=== PATIENT | female | born 1975 | race Caucasian/White ===

== ENCOUNTER 2020-12-07 14:29 | Day surgery (SDC) | payer OTHER ==
[~2020-12-07] VITALS: Ht 167.6 cm; Wt 141.9 kg
[2020-12-07] MEDS ORDERED: PANT40TA29 PO (14:40)
[2020-12-07] MEDS ORDERED: LEVO25TA5 PO (14:40)
[2020-12-07] MEDS ORDERED: GABA-845 PO (14:40)
[2020-12-07] MEDS ORDERED: TIZA4CAP PO (14:40)
[2020-12-07] MEDS ORDERED: CITA40TA4 PO (14:40)
[2020-12-07] MEDS ORDERED: SYED1TAB2 PO (14:40)
[2020-12-07] MEDS ORDERED: NUCY150T PO (14:40)
[2020-12-07] MEDS ORDERED: TRAM50TA2 PO (14:40)
[2020-12-07] MEDS ORDERED: PROMETHAZINE INJ 25 MG/ML VIAL (J2550) IV ONE (15:05)
[2020-12-07] MEDS ORDERED: MORPHINE 4 MG/ML 1ML VIAL/SYRINGE (J2270) IV ONE ×2 (15:05→18:25)
[2020-12-07] MEDS ORDERED: NS 1,000 ML IV ONE (15:05)
[2020-12-07 15:38] LABS: BASO # 0.1 10^3/uL (0.0-0.2); BASO % 0.5 % (0.0-1.0); EOS # 0.1 10^3/uL (0.0-0.5); EOS % 0.6 % (0.0-3.0); HEMATOCRIT 37.2 % (36.0-47.0); HEMOGLOBIN 11.9 g/dl (12.0-15.5); MEAN CORPUSCULAR HEMOGLOBIN 25.9 pg (27.0-33.0); MEAN CORPUSCULAR VOLUME 80.9 fl (80.0-96.0); MONO # 0.8 10^3/uL (0.0-0.8); MONO % 5.7 % (2.0-8.0); NEUTROPHILS # 10.3 10^3/uL (1.5-8.5); NEUTROPHILS % 71.7 % (36.0-66.0); PLATELET COUNT, AUTOMATED 441 10^3/uL (150-450); WHITE BLOOD COUNT 14.3 10^3/uL (4.0-10.0)
[2020-12-07 16:36] LABS: ALBUMIN 2.9 GM/DL (3.2-5.2); ALT/SGPT 16 U/L (12-78); BILIRUBIN,DIRECT < 0.1 MG/DL (0.0-0.2); BILIRUBIN,TOTAL 0.2 MG/DL (0.2-1.0); BLOOD UREA NITROGEN 8 MG/DL (7-18); CALCIUM LEVEL 8.5 MG/DL (8.5-10.1); CARBON DIOXIDE LEVEL 25 MEQ/L (21-32); CHLORIDE LEVEL 107 MEQ/L (98-107); CREATININE FOR GFR 0.61 MG/DL (0.55-1.30); GLOMERULAR FILTRATION RATE > 60.0 (>58); GLUCOSE, FASTING 103 MG/DL (70-100); LIPASE 69 U/L (73-393); POTASSIUM SERUM 4.3 MEQ/L (3.5-5.1); SODIUM LEVEL 139 MEQ/L (136-145); TOTAL PROTEIN 6.7 GM/DL (6.4-8.2)
[2020-12-07] MEDS ORDERED: ISOVUE-370 76% 100ML VIAL As Ordered ONE (16:39)
--- NOTE | 2020-12-07 17:04 | REP ---
INDICATION: rlq pain, nausea, loss of appetite. COMPARISON: None. TECHNIQUE: Helical scanning was acquired and 4 mm axial images are re-formatted. Coronal and sagittal MPR images were generated and reviewed. The contrast enhancement dose is 100 mL of intravenous Isovue 370. 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 The lung bases are clear on axial CT images. There is no evidence of pleural effusion or upper abdominal ascites. The liver and the spleen are normal in size homogeneous in texture. Normal adrenal glands are seen bilaterally. No abnormality is noted in the pancreas. The gallbladder surgically absent. The patient is status post gastric sleeve procedure. The kidneys enhance symmetrically and are morphologically intact. No retroperitoneal mass or adenopathy is seen. Small and large bowel loops are normal in the upper abdomen. Pelvic CT images demonstrate fluid-filled mildly dilated appendix in the right lower quadrant with Reta appendiceal streaking consistent with early appendicitis. No abscess or free air is seen. The appendix is posterior to the cecal tip and distal ileum in the right iliac fossa. There is left colonic diverticulosis without CT evidence of diverticulitis. Fibroid changes noted in the uterus. No ovarian abnormality is seen. Urinary bladder is intact. No abdominal wall defect or bony destructive lesion is seen. IMPRESSION: Findings consistent with early acute appendicitis with fluid distention of the distal appendix and periappendiceal streaking. No abscess or free air is seen. Fibroid uterus and left colonic diverticulosis. Status post cholecystectomy and gastric sleeve procedure. <Electronically signed by Gerald Quiros > 12/07/20 [id number]
[2020-12-07] MEDS ORDERED: GABA800T4 PO (17:34)
[2020-12-07] MEDS ORDERED: LR 1,000 ML IV SCH (20:51)
[2020-12-07] MEDS ORDERED: ONDANSETRON 4MG/2ML VIAL IV PRN (20:55)
[2020-12-07] MEDS ORDERED: CitaloPRAM (CeleXA) 20 MG TAB PO SCH (21:00)
[2020-12-07] MEDS: MORPHINE 2 MG/ML 1ML VIAL (J2270) IV PRN (21:26)
[2020-12-07] MEDS ORDERED: cefTRIAXone SOD 2 GM in D5W MINI-BAG PLUS 50 ML IV ONE (21:30)
[2020-12-07] MEDS ORDERED: LIDOCAINE 2% 100MG/5ML SDV (FOR ANES.) As Ordered ONE (21:45)
[2020-12-07] MEDS ORDERED: propofoL 200 MG/20 ML VIAL As Ordered ONE (21:45)
[2020-12-07] MEDS ORDERED: MIDAZOLAM INJ 2MG/2ML VIAL (J2250 PER 1MG) As Ordered ONE (21:45)
[2020-12-07] MEDS ORDERED: ROCURONIUM BROMIDE 50 MG/5 ML VIAL As Ordered ONE ×2 (21:45→23:49)
[2020-12-07] MEDS ORDERED: ONDANSETRON 4MG/2ML VIAL As Ordered ONE (21:46)
[2020-12-07] MEDS ORDERED: fentaNYL 100 MCG/2 ML INJECTION (J3010) As Ordered ONE ×2 (21:46→23:40)
[2020-12-07] MEDS ORDERED: dexameTHASONE 4 MG/ML 1ML VIAL (J1100 PER 1MG) As Ordered ONE (21:46)
[2020-12-07] MEDS ORDERED: metroNIDAZOLE 500 MG in IV 1 EA IV ONE (22:00)
[2020-12-07] MEDS ORDERED: SUGAMMADEX SODIUM 500 MG/5 ML VIAL (BRIDION) As Ordered ONE (22:28)
[2020-12-07] MEDS ORDERED: KETOROLAC 60MG 2ML VIAL As Ordered ONE (22:28)
[2020-12-07] MEDS ORDERED: BUPIVACAINE HCL 0.25% 30ML VIAL As Ordered ONE (23:26)
[2020-12-07] MEDS ORDERED: ACETAMINOPHEN 1000MG 100ML IV BTL (OFIRMEV) (J0131 PER 10MG) As Ordered ONE (23:31)
[2020-12-07] MEDS ORDERED: METOCLOPRAMIDE INJ 10MG/2ML VIAL (J2765 PER 1) As Ordered ONE (23:40)
[2020-12-08] MEDS ORDERED: SUGAMMADEX SODIUM 500 MG/5 ML VIAL (BRIDION) As Ordered ONE (00:25)
[2020-12-08] MEDS ORDERED: traMADol 50 MG TAB PO PRN (00:45)
[2020-12-08] MEDS ORDERED: tiZANidine 4 MG TAB PO PRN (00:45)
[2020-12-08] MEDS ORDERED: ACETAMINOPHEN TAB 650MG DOSE (2X325MG) PO PRN (00:45)
[2020-12-08] MEDS ORDERED: ONDANSETRON 4MG/2ML VIAL IV PRN (00:55)
[2020-12-08] MEDS ORDERED: oxyCODONE 5MG TAB PO PRN (00:55)
[2020-12-08] MEDS ORDERED: HYDROMORPHONE HCL 0.5 MG/ 0.5 ML SYRINGE (J1170 PER 1) IV PRN (00:55)
[2020-12-08] MEDS ORDERED: LR 1,000 ML IV SCH (00:55)
[2020-12-08] MEDS ORDERED: fentaNYL 100 MCG/2 ML INJECTION (J3010) IV PRN (00:55)
[2020-12-08 01:30] VITALS: BP 131/81
[2020-12-08] MEDS: GABAPENTIN 400MG CAP PO SCH ×2 (01:32→08:01)
[2020-12-08 02:00] VITALS: BP 131/81
[2020-12-08 03:00] VITALS: BP 135/82
[2020-12-08 04:00] VITALS: BP 132/80
[2020-12-08 06:06] VITALS: BP 138/82
--- NOTE | 2020-12-08 06:54 | RO ---
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 POSTOPERATIVE DIAGNOSIS: Acute appendicitis. PROCEDURE: Laparoscopic appendectomy. SURGEON: Gurinder Avila MD EXERCISE EQUIPMENT SPECIALIST: ANESTHESIA: General. INDICATIONS FOR THE PROCEDURE: The patient is a 45-year-old woman who had developed some abdominal pain in the lower abdomen which became more localized in the right lower quadrant. She had tenderness in the right lower quadrant and a CT scan showed evidence for inflammation of the appendix. She is now for a laparoscopic appendectomy. DESCRIPTION OF PROCEDURE: The patient was brought to the operating room and placed on the table in a supine position. She was placed under general endotracheal anesthesia. The patient's abdomen was prepped and draped in a sterile fashion. A 0.25% Marcaine was infiltrated at each of the trocar sites as needed. A short supraumbilical midline incision was made and this was deepened to the fascia. A Veress needle was inserted and after a positive hanging-drop test, the abdomen was inflated with carbon dioxide gas. When the abdomen was inflated fully, an incision was made in the fascia and a 12-mm port was placed without difficulty. The laparoscope was inserted. The patient was tilted slightly to a Trendelenburg position and rolled slightly to the left. Inspection showed a normal-appearing liver. Visualized loops of the small and large bowel appeared normal. There did appear to be some inflammation at the inferior aspect of the cecum in the right lower quadrant. Two 5-mm ports were placed in the left lower quadrant and graspers were inserted. The appendix was identified lying against the lateral abdominal wall at the inferior aspect of the cecum with marked inflammation of the distal 2-3 cm of the tip of the appendix. This was adherent to the lateral abdominal wall. The appendix was freed by blunt dissection and then grasped and elevated. The mesoappendix was divided using the cautery with care to ensure that the vessels were thoroughly cauterized. The mesoappendix was divided all the way down to the base of the appendix. The appendix was stapled at its junction with the cecum using a 45-mm endoscopic linear cutter stapler with a blue load. The appendix was placed in an Endopouch. The right lower quadrant was irrigated and inspected, and there was no evidence of any bleeding. The staple line was intact. The patient was returned to a flat position. The abdomen was deflated and the trocars were all removed. The appendix was recovered through the supraumbilical site and sent for permanent pathology. The fascia at the supraumbilical site was closed with interrupted simple sutures of 2-0 Vicryl. The subcutaneous tissues were closed with a 2-0 Vicryl and the skin incisions were then all closed with buried 4-0 Vicryl and Steri-Strips. Light dressings were applied. The patient tolerated the procedure well without apparent complication. She was awakened in the operating room, extubated, and moved to the recovery room in stable condition.
[2020-12-08] MEDS: MORPHINE 2 MG/ML 1ML VIAL (J2270) IV PRN (08:11)
[2020-12-08] MEDS ORDERED: PANTOPRAZOLE 40MG TAB (PROTONIX) PO SCH (09:00)
[2020-12-08] MEDS ORDERED: LEVOTHYROXINE 25MCG TABLET (0.025MG) PO SCH (09:00)
[2020-12-08 10:00] VITALS: BP 141/83
--- NOTE | 2020-12-10 17:12 | IPN ---
PROGRESS NOTE DATE: 12/08/2020 HISTORY: Patient is a 45-year-old woman who presented to the emergency department on December 07 with right lower quadrant abdominal pain. A CT scan had shown inflammation of the tip of the appendix, and she underwent appendectomy just about midnight. The surgery was uncomplicated. She has been doing generally well postoperatively, and her diet has been advanced. Vital Signs: Show that she has been afebrile since surgery. Her pulse is generally in the 90s now. Her blood pressure is good. Intake and output show that she had 1900 of oral intake today with a good urine output. PHYSICAL EXAMINATION: Patient is awake and alert and seems quite comfortable. Examination of the abdomen reveals active bowel sounds. Her dressings are clean and dry. The abdomen is soft with some expected tenderness but nothing excessive for what she had done. IMPRESSION: Patient is doing very well now 1 day, actually 12 hours, postoperative from her laparoscopic appendectomy. PLAN: Patient was counseled that she appears ready for discharge, and she is agreeable. I advised her that she should avoid any strenuous physical activity for about 2 weeks. She can pursue light activities as tolerated. She can take a diet as tolerated. She should take any usual medications she was taking before she came in. We discussed pain medications, and she declined any need for new medications. She has some medicine for her chronic back pain in the form of tramadol if she needs something. She should followup in my office in a week to 10 days for a routine followup. She should call my office for any problems. She can shower 24 hours after the surgery but should leave her Steri-Strips on to come off on their own.
== END 2020-12-08 14:40 | disposition home or self-care (01) ==
LOC: M ED 14:29 → M SDC 20:54 → M MS5PR 12-08 01:18 → M SDC 12-08 14:40
PROVIDERS: ATTEND Surgery
DX: K35.890 Other acute appendicitis without perforation or gangrene (principal); J45.909 Unspecified asthma, uncomplicated; E07.9 Disorder of thyroid, unspecified; M54.9 Dorsalgia, unspecified; F99 Mental disorder, not otherwise specified; E66.9 Obesity, unspecified; M79.7 Fibromyalgia; K21.9 Gastro-esophageal reflux disease without esophagitis; Z98.84 Bariatric surgery status
CPT/HCPCS: 36415; 44970; 74177; 80048; 80076; 81001; 83605; 83690; 84702; 85025; 88304; 96361; 96365; 96367; 96375; 96376; 99284; J0131; J0696; J1100; J1885; J2250; J2270; J2405; J2765; J3010; Q9967; U0002

== ENCOUNTER → 2021-03-13 | Outpatient (REF) | payer OTHER ==
[~2021-03-13] MED LIST: CITA40TA4 PO; GABA-283 PO; GABA800T4 PO; LEVO25TA5 PO; NUCY150T PO; PANT40TA29 PO; SYED1TAB2 PO; TIZA4CAP PO; TRAM50TA2 PO
== END ==
LOC: M SFHCPLAZ 13:00
PROVIDERS: ATTEND Family Medicine
DX: Z51.81 Encounter for therapeutic drug level monitoring (principal)

== ENCOUNTER → 2021-03-18 | Outpatient (CLI) | payer OTHER ==
[2021-03-18 13:49] LABS: HEMATOCRIT 38.2 % (36.0-47.0); HEMOGLOBIN 11.3 g/dl (12.0-15.5); MEAN CORPUSCULAR HEMOGLOBIN 24.3 pg (27.0-33.0); MEAN CORPUSCULAR HGB CONC 29.6 g/dl (32.0-36.5); MEAN CORPUSCULAR VOLUME 82.2 fl (80.0-96.0); PLATELET COUNT, AUTOMATED 413 10^3/uL (150-450); RED BLOOD COUNT 4.65 10^6/uL (4.00-5.40); WHITE BLOOD COUNT 10.3 10^3/uL (4.0-10.0)
[2021-03-18 13:55] LABS: HEMATOCRIT 38.6 % (36.0-47.0)
[2021-03-18 14:28] LABS: ALBUMIN 3.1 GM/DL (3.2-5.2); ALT/SGPT 24 U/L (12-78); BILIRUBIN,TOTAL 0.2 MG/DL (0.2-1.0); BLOOD UREA NITROGEN 9 MG/DL (7-18); CALCIUM LEVEL 9.1 MG/DL (8.5-10.1); CARBON DIOXIDE LEVEL 27 MEQ/L (21-32); CHLORIDE LEVEL 104 MEQ/L (98-107); CHOLESTEROL LEVEL 201 MG/DL (<200); CREATININE FOR GFR 0.74 MG/DL (0.55-1.30); FERRITIN 9 NG/ML (8-252); GLOMERULAR FILTRATION RATE > 60.0 (>58); GLUCOSE, FASTING 91 MG/DL (70-100); HDL CHOLESTEROL 63 MG/DL (>40); LDL CHOLESTEROL 106 MG/DL (<100); MAGNESIUM LEVEL 2.2 MG/DL (1.8-2.4); NON-HDL-C 138 MG/DL; PHOSPHORUS LEVEL 3.7 MG/DL (2.5-4.9); POTASSIUM SERUM 4.1 MEQ/L (3.5-5.1); SODIUM LEVEL 141 MEQ/L (136-145); TOTAL PROTEIN 7.3 GM/DL (6.4-8.2); TRIGLYCERIDES LEVEL 160 MG/DL (<150)
[2021-03-18 14:30] LABS: TOTAL 25(OH) VITAMIN D 21.9 NG/ML (30.0-100.0); VITAMIN B12 LEVEL 740 PG/ML (247-911)
== END ==
LOC: M PLALAB 08:58
PROVIDERS: ATTEND Family Medicine
DX: E03.9 Hypothyroidism, unspecified (principal)

== ENCOUNTER → 2021-05-15 | Outpatient (CLI) | payer OTHER | LOC: M PLALAB 11:29 | PROVIDERS: ATTEND Family Medicine | DX: M25.50 Pain in unspecified joint (principal) ==

== ENCOUNTER → 2021-08-12 | Outpatient (CLI) | payer OTHER ==
[~2021-08-12] MED LIST changes: -CITA40TA4 PO; +CITA40TA7 PO
== END ==
LOC: M PLALAB 09:35
PROVIDERS: ATTEND Family Medicine
DX: E03.9 Hypothyroidism, unspecified (principal)

== ENCOUNTER → 2021-09-16 | Outpatient (CLI) | payer OTHER ==
[~2021-09-16] MED LIST changes: +CITA40TA4 PO; -CITA40TA7 PO
== END ==
LOC: M PAIN 13:00
PROVIDERS: ATTEND Anesthesiology
DX: M47.816 Spondylosis without myelopathy or radiculopathy, lumbar region (principal); E03.9 Hypothyroidism, unspecified; F32.9 Major depressive disorder, single episode, unspecified; K21.9 Gastro-esophageal reflux disease without esophagitis; M51.36 Other intervertebral disc degeneration, lumbar region; M17.0 Bilateral primary osteoarthritis of knee; E28.2 Polycystic ovarian syndrome; J45.909 Unspecified asthma, uncomplicated; M79.7 Fibromyalgia; M54.2 Cervicalgia; Z79.891 Long term (current) use of opiate analgesic; Z79.899 Other long term (current) drug therapy

== ENCOUNTER → 2021-10-26 | Outpatient (CLI) | payer OTHER ==
[~2021-10-26] MED LIST changes: -CITA40TA4 PO; +CITA40TA7 PO
== END ==
LOC: M PLAIMG 11:01
PROVIDERS: ATTEND Anesthesiology
DX: R93.7 Abnormal findings on diagnostic imaging of other parts of musculoskeletal system (principal); M47.816 Spondylosis without myelopathy or radiculopathy, lumbar region

== ENCOUNTER → 2021-11-12 | Outpatient (REF) | payer OTHER | LOC: M SFHCPLAZ 16:47 | PROVIDERS: ATTEND Family Medicine | DX: Z51.81 Encounter for therapeutic drug level monitoring (principal) ==

== ENCOUNTER → 2022-02-15 | Outpatient (CLI) | payer OTHER | LOC: M PAIN 13:00 | PROVIDERS: ATTEND Anesthesiology | DX: M79.10 Myalgia, unspecified site (principal); M54.50 Low back pain, unspecified; M47.816 Spondylosis without myelopathy or radiculopathy, lumbar region; E03.9 Hypothyroidism, unspecified; F32.A Depression, unspecified; K21.9 Gastro-esophageal reflux disease without esophagitis; J45.909 Unspecified asthma, uncomplicated; M51.36 Other intervertebral disc degeneration, lumbar region; M17.0 Bilateral primary osteoarthritis of knee; M79.7 Fibromyalgia; M54.2 Cervicalgia; Z79.899 Other long term (current) drug therapy ==

== ENCOUNTER 2022-11-06 07:41 | Emergency (ER) | payer OTHER ==
[~2022-11-06] VITALS: Ht 167.6 cm; Wt 164.8 kg
[2022-11-06] MEDS ORDERED: BOOSTRIX/ADACEL VACCINE (DIPHTH/PERTUSS/ACELL/TETANUS) 0.5ML SYR IM.IMMUN ONE (08:10)
[2022-11-06] MEDS ORDERED: ACETAMINOPHEN 500 MG TAB PO ONE (08:40)
[2022-11-06 08:44] LABS: BASO # 0.1 10^3/uL (0.0-0.2); BASO % 0.4 % (0.0-1.0); EOS # 0.1 10^3/uL (0.0-0.5); EOS % 0.6 % (0.0-3.0); HEMATOCRIT 43.8 % (36.0-47.0); HEMOGLOBIN 14.1 g/dl (12.0-15.5); LYMPH # 2.3 10^3/uL (1.5-5.0); LYMPH % 12.6 % (24.0-44.0); MEAN CORPUSCULAR HEMOGLOBIN 28.3 pg (27.0-33.0); MEAN CORPUSCULAR HGB CONC 32.2 g/dl (32.0-36.5); MEAN CORPUSCULAR VOLUME 87.8 fl (80.0-96.0); MONO # 0.8 10^3/uL (0.0-0.8); MONO % 4.2 % (2.0-8.0); NEUTROPHILS % 81.7 % (36.0-66.0); PLATELET COUNT, AUTOMATED 417 10^3/uL (150-450); RED BLOOD COUNT 4.99 10^6/uL (4.00-5.40); WHITE BLOOD COUNT 18.4 10^3/uL (4.0-10.0)
[2022-11-06] MEDS ORDERED: LIDOCAINE 2% W/EPINEPHRINE 20ML VIAL **PRES FREE INJ ONE (08:45)
[2022-11-06 09:09] LABS: BLOOD UREA NITROGEN 12 MG/DL (9-23); CALCIUM LEVEL 8.5 MG/DL (8.5-10.1); CARBON DIOXIDE LEVEL 27 MMOL/L (20-31); CHLORIDE LEVEL 102 MMOL/L (98-107); CREATININE FOR GFR 0.78 MG/DL (0.55-1.30); GLOMERULAR FILTRATION RATE > 60.0 (>58); GLUCOSE, FASTING 163 MG/DL (60-100); MAGNESIUM LEVEL 1.8 MG/DL (1.8-2.4); POTASSIUM SERUM 4.8 MMOL/L (3.5-5.1); SODIUM LEVEL 135 MMOL/L (136-145)
[2022-11-06 09:11] LABS: THYROID STIMULATING HORMONE 4.503 uIU/ML (0.55-4.78)
[2022-11-06 09:34] LABS: LIPASE 27 U/L (12-53)
[2022-11-06 09:39] LABS: ALBUMIN 2.7 G/DL (3.2-5.2); ALKALINE PHOSPHATASE 89 U/L (46-116); ALT/SGPT 18 U/L (7.0-40); AST/SGOT 11 U/L (<34); BILIRUBIN,DIRECT < 0.1 MG/DL (<0.4); BILIRUBIN,TOTAL 0.3 MG/DL (0.3-1.2); TOTAL PROTEIN 6.3 G/DL (5.7-8.2)
[2022-11-06] MEDS ORDERED: BACI500O8 TOP ×2 (10:34→11:45)
[2022-11-06 10:53] VITALS: O2SAT 99
[2022-11-06 11:45] VITALS: BP 117/56
== END 2022-11-06 12:03 | disposition home or self-care (01) ==
LOC: M ED 07:41
DX: R55 Syncope and collapse (principal); S01.81XA Laceration without foreign body of other part of head, initial encounter; W07.XXXA Fall from chair, initial encounter; Y92.091 Bathroom in other non-institutional residence as the place of occurrence of the external cause; J45.909 Unspecified asthma, uncomplicated; F32.9 Major depressive disorder, single episode, unspecified; Z79.890 Hormone replacement therapy; Z79.899 Other long term (current) drug therapy

== ENCOUNTER 2023-11-02 09:20 | Day surgery (SDC) | payer OTHER ==
[~2023-11-02] VITALS: Ht 167.6 cm; Wt 123.6 kg
[~2023-11-02 09:20] MED LIST changes: +BACI500O8 TOP; -GABA-283 PO; +GABA-284 PO; +LEVO50TA5 PO; +PANT20TA6 PO; +PHEN37.58 PO; +PROA1AER2 INH; +TOPI-21 PO
[2023-11-02] MEDS: NS 1,000 ML IV ONE (09:42)
[2023-11-02] MEDS ORDERED: propofoL 200 MG/20 ML VIAL As Ordered ONE (10:59)
[2023-11-02] MEDS ORDERED: LIDOCAINE 2% 100MG/5ML SDV (FOR ANES.) As Ordered ONE (10:59)
[2023-11-02 11:51] VITALS: TEMP 99.3
[2023-11-02 12:11] VITALS: BP 127/59; O2SAT 97
== END 2023-11-02 12:28 | disposition home or self-care (01) ==
LOC: M OPP 09:20
PROVIDERS: ATTEND Internal Medicine Gastroenterology
DX: Z12.11 Encounter for screening for malignant neoplasm of colon (principal); K64.0 First degree hemorrhoids; K57.30 Diverticulosis of large intestine without perforation or abscess without bleeding; G47.30 Sleep apnea, unspecified; Z79.51 Long term (current) use of inhaled steroids; Z79.890 Hormone replacement therapy; Z79.891 Long term (current) use of opiate analgesic; Z79.899 Other long term (current) drug therapy

== ENCOUNTER 2024-06-19 11:44 | Outpatient (CLI) | payer OTHER ==
[~2024-06-19] VITALS: Ht 167.6 cm; Wt 119.5 kg
[~2024-06-19 11:44] MED LIST changes: +ALBUTEROL SULFATE 2.5MG/0.5ML INH NEB SOLN INH PRN; +EPINEPHrine INJ 1 MG/ML 1ML AMP IM PRN; +GABA-1635 PO; -GABA800T4 PO; +diphenhydrAMINE 50MG/ML VIAL IV PRN; +methylPREDNISolone 125MG 2ML VIAL IV PRN
[2024-06-19 12:00] VITALS: BP 134/60; O2SAT 98
[2024-06-19] MEDS: IRON SUCROSE 300 MG in NS 250 ML OVER 90 MIN. IV ONE (12:43)
[2024-06-19 14:25] VITALS: BP 119/56; O2SAT 100
== END 2024-06-19 14:40 | disposition home or self-care (01) ==
LOC: M INFU 11:44
PROVIDERS: ATTEND Internal Medicine Hematology
DX: D50.9 Iron deficiency anemia, unspecified (principal)
CPT/HCPCS: 96365; 96366; J1756

== ENCOUNTER 2024-06-26 14:05 | Outpatient (CLI) | payer OTHER ==
[~2024-06-26] VITALS: Ht 167.6 cm; Wt 120.0 kg
[~2024-06-26 14:05] MED LIST changes: +NS 1,000 ML IV SCH
[2024-06-26 14:15] VITALS: BP 116/55; O2SAT 99
[2024-06-26] MEDS: IRON SUCROSE 300 MG in NS 250 ML IV ONE (14:41)
[2024-06-26 16:17] VITALS: BP 118/56; O2SAT 100
== END 2024-06-26 16:20 ==
LOC: M INFU 14:05
PROVIDERS: ATTEND Internal Medicine Hematology
DX: D50.9 Iron deficiency anemia, unspecified (principal)
CPT/HCPCS: 96365; J1756

== ENCOUNTER 2024-07-03 12:30 | Outpatient (CLI) | payer OTHER ==
[~2024-07-03] VITALS: Ht 167.6 cm; Wt 119.5 kg
[2024-07-03 12:30] VITALS: BP 124/60; O2SAT 100
[2024-07-03] MEDS: IRON SUCROSE 300 MG in NS 250 ML IV ONE (13:27)
[2024-07-03 15:05] VITALS: BP 123/58; O2SAT 100
== END 2024-07-03 15:30 ==
LOC: M INFU 12:30
PROVIDERS: ATTEND Internal Medicine Hematology
DX: D50.9 Iron deficiency anemia, unspecified (principal)
CPT/HCPCS: 96365; 96366; J1756

== ENCOUNTER → 2024-10-10 | Outpatient (CLI) | payer OTHER ==
[~2024-10-10] MED LIST changes: -ALBUTEROL SULFATE 2.5MG/0.5ML INH NEB SOLN INH PRN; -EPINEPHrine INJ 1 MG/ML 1ML AMP IM PRN; -NS 1,000 ML IV SCH; -diphenhydrAMINE 50MG/ML VIAL IV PRN; -methylPREDNISolone 125MG 2ML VIAL IV PRN
[2024-10-10 17:39] LABS: BASO # 0.1 10^3/uL (0.0-0.2); BASO % 0.7 % (0.0-1.0); EOS # 0.1 10^3/uL (0.0-0.5); EOS % 1.2 % (0.0-3.0); HEMATOCRIT 37.9 % (36.0-47.0); HEMOGLOBIN 11.8 g/dl (12.0-15.5); LYMPH # 2.5 10^3/uL (1.5-5.0); MEAN CORPUSCULAR HGB CONC 31.1 g/dl (32.0-36.5); MEAN CORPUSCULAR VOLUME 86.7 fl (80.0-96.0); MONO # 0.5 10^3/uL (0.0-0.8); MONO % 6.3 % (2.0-8.0); NEUTROPHILS # 5.3 10^3/uL (1.5-8.5); NEUTROPHILS % 62.6 % (36.0-66.0); PLATELET COUNT, AUTOMATED 350 10^3/uL (150-450); RED BLOOD COUNT 4.37 10^6/uL (4.00-5.40); WHITE BLOOD COUNT 8.4 10^3/uL (4.0-10.0)
[2024-10-10 17:45] LABS: PERCENT SATURATION 13.2 % (13.2-45.0)
[2024-10-10 17:47] LABS: FERRITIN 7.9 NG/ML (7.3-270.7); THYROID STIMULATING HORMONE 1.244 uIU/ML (0.55-4.78); TOTAL 25(OH) VITAMIN D 63.1 NG/ML (20.0-100.0)
[2024-10-14 13:53] LABS: TRANSFERRIN 366 mg/dL (188-341)
[2024-10-15 18:17] LABS: COPPER PLASMA 101 mcg/dL (70-175)
== END ==
LOC: M PLALAB 14:18
PROVIDERS: ATTEND Internal Medicine Hematology
DX: D50.8 Other iron deficiency anemias (principal); Z98.84 Bariatric surgery status

== ENCOUNTER 2024-10-31 11:56 | Outpatient (CLI) | payer OTHER ==
[~2024-10-31] VITALS: Ht 167.6 cm; Wt 119.5 kg
[~2024-10-31 11:56] MED LIST changes: +ALBUTEROL SULFATE 2.5MG/0.5ML INH NEB SOLN INH PRN; +EPINEPHrine INJ 1 MG/ML 1ML AMP IM PRN; +diphenhydrAMINE 50MG/ML VIAL IV PRN; +methylPREDNISolone 125MG 2ML VIAL IV PRN
[2024-10-31] MEDS: IRON SUCROSE 300 MG in NS 250 ML IV ONE (12:57)
[2024-10-31 14:39] VITALS: BP 154/80; O2SAT 98
== END 2024-10-31 14:40 ==
LOC: M INFU 11:56
PROVIDERS: ATTEND Internal Medicine Hematology
DX: D50.8 Other iron deficiency anemias (principal)
CPT/HCPCS: 96365; 96366; J1756

== ENCOUNTER 2024-11-07 12:10 | Outpatient (CLI) | payer OTHER ==
[~2024-11-07] VITALS: Ht 167.6 cm; Wt 119.0 kg
[2024-11-07 12:41] VITALS: BP 113/51; O2SAT 98
[2024-11-07] MEDS: IRON SUCROSE 300 MG in NS 250 ML OVER 90 MIN. IV ONE (12:53)
[2024-11-07 14:28] VITALS: BP 117/56; O2SAT 98
== END 2024-11-07 14:30 ==
LOC: M INFU 12:10
PROVIDERS: ATTEND Internal Medicine Hematology
DX: D50.8 Other iron deficiency anemias (principal)
CPT/HCPCS: 96365; J1756